=== PATIENT | female | born 1970 | race Caucasian/White ===

== ENCOUNTER 2023-10-25 10:26 | Emergency (ER) | payer OTHER ==
[2023-10-25 10:45] VITALS: PULSE 87; RESP 18; TEMP 98.5
--- NOTE | 2023-10-25 11:10 | ED ---
ENT HPI - General Chief complaint: Dental/Oral Stated complaint: jaw pain Time Seen by Provider: 10/25/23 10:40 Source: patient, RN notes reviewed Mode of arrival: ambulatory Limitations: no limitations - History of Present Illness Initial comments: This is a 53-year-old female presents the emergency department chief complaint of right-sided jaw pain. Patient states that she has a history of osteomyelitis and has had multiple procedures completed overdrawn in addition to being prescribed antibiotics. Patient [place] around [place] and does not have a established primary care provider that she seeks medical care through. Patient is presenting for a prescription for pain medication. Denies chest pain, shortness of breath, dizziness, lightheadedness, fevers, chills, nausea, vomiting. - Related Data Allergies Allergy/AdvReac Type Severity Reaction Status Date / Time NSAIDS (Non-Steroidal Allergy Unknown Verified 10/25/23 10:45 Anti-Inflamma ondansetron [From Zofran] Allergy Nausea Verified 10/25/23 10:45 meperidine [From Demerol] AdvReac Rash/Hives Verified 10/25/23 10:45 vancomycin AdvReac Unknown Verified 10/25/23 10:45 IV contrast Allergy Rash/Hives Uncoded 10/25/23 10:45 Review of Systems ROS Statement: Those systems with pertinent positive or pertinent negative responses have been documented in the HPI. ROS Other: All systems not noted in ROS Statement are negative. Past Medical History Past Medical History: Cancer, Hypertension Additional Past Medical History / Comment(s): MS, type one diabetes, ostemoyl itis, History of Any Multi-Drug Resistant Organisms: None Reported Past Surgical History: Appendectomy, Cholecystectomy, Hysterectomy Additional Past Surgical History / Comment(s): Jaw surgery x6 Past Psychological History: No Psychological Hx Reported Smoking Status: Never smoker Past Alcohol Use History: None Reported Past Drug Use History: None Reported General Exam Limitations: no limitations General appearance: alert, in no apparent distress Head exam: Present: atraumatic, normocephalic, normal inspection Eye exam: Present: normal appearance, PERRL, EOMI. Absent: scleral icterus, conjunctival injection, periorbital swelling ENT exam: Present: normal exam, mucous membranes moist Expanded Mouth exam: Present: normal external inspection, other (no teeth present). Absent: tongue normal, tongue elevation Neck exam: Present: normal inspection. Absent: tenderness, meningismus, lymphadenopathy Respiratory exam: Present: normal lung sounds bilaterally. Absent: respiratory distress, wheezes, rales, rhonchi, stridor Cardiovascular Exam: Present: regular rate, normal rhythm, normal heart sounds. Absent: systolic murmur, diastolic murmur, rubs, gallop, clicks GI/Abdominal exam: Present: soft, normal bowel sounds. Absent: distended, tenderness, guarding, rebound, rigid Extremities exam: Present: normal inspection, full ROM, normal capillary refill. Absent: tenderness, pedal edema, joint swelling, calf tenderness Back exam: Present: normal inspection Neurological exam: Present: alert, oriented X3, CN II-XII intact Psychiatric exam: Present: normal affect, normal mood Skin exam: Present: warm, dry, intact, normal color. Absent: rash Course Vital Signs 10/25/23 10/25/23 10/25/23 10:40 11:30 11:47 Temperature 98.5 F Pulse Rate 87 Respiratory 18 18 Rate Blood Pressure 211/113 208/111 O2 Sat by Pulse 99 Oximetry Medical Decision Making - Medical Decision Making Was pt. sent in by a medical professional or institution (, PA, [employer], urgent care, hospital, or penitentiary...) When possible be specific @ -No Did you speak to anyone other than the patient for history (EMS, parent, family, police, friend...)? What history was obtained from this source @ -No Did you review nursing and triage notes (agree or disagree)? Why? @ -I reviewed and agree with nursing and triage notes Were old charts reviewed (outside hosp., previous admission, EMS record, old EKG, old radiological studies, urgent care reports/EKG's, penitentiary records)? Report findings @ -No old charts were reviewed Differential Diagnosis (chest pain, altered mental status, abdominal pain women, abdominal pain men, vaginal bleeding, weakness, fever, dyspnea, syncope, headache, dizziness, GI bleed, back pain, seizure, CVA, palpatations, mental health, musculoskeletal)? @ -dental pain, jaw pain, gingivitis, gum pain, this list is not all inclusive. EKG interpreted by me (3pts min.). @ -none X-rays interpreted by me (1pt min.). @ -None done CT interpreted by me (1pt min.). @ -None done U/S interpreted by me (1pt. min.). @ -None done What testing was considered but not performed or refused? (CT, X-rays, U/S, labs)? Why? @ -None What meds were considered but not given or refused? Why? @ -None Did you discuss the management of the patient with other professionals (professionals i.e. Dr., PA, [employer], lab, RT, psych nurse, health care social worker, credit control officer, teacher, house officer, director of casework department)? Give summary @ -No Was smoking cessation discussed for >3mins.? @ -No Was critical care preformed (if so, how long)? @ -No Were there social determinants of health that impacted care today? How? (Homelessness, low income, unemployed, alcoholism, drug addiction, transportation, low edu. Level, literacy, decrease access to med. care, shelter, rehab)? @ -No Was there de-escalation of care discussed even if they declined (Discuss DNR or withdrawal of care, Hospice)? DNR status @ -No What co-morbidities impacted this encounter? (DM, HTN, Smoking, COPD, CAD, Cancer, CVA, ARF, Chemo, Hep., AIDS, mental health diagnosis, sleep apnea, morbid obesity)? @ -None Was patient admitted / discharged? Hospital course, mention meds given and route, prescriptions, significant lab abnormalities, going to OR and other pertinent info. @ -Left AGAINST MEDICAL ADVICE. 53-year-old female with dental pain. On patient's presentation she has noted to be severely hypertensive with a blood pressure of 211/113 with a heart rate of 87. Patient states that he does have a history of hypertension and is taking her metoprolol and lisinopril as prescribed this morning. She is denying symptoms of chest pain, chest pressure, palpitations, dizziness, and numbness. Patient is requesting pain medication for pain in her right jaw. On examination there are no signs of erythema, purulence or intraoral infection. She is provided with a dose of clonidine and pain medication. On reevaluation, patient states that she would like to leave AGAINST MEDICAL ADVICE. Discussed the risks of the patient which she has verbalized understanding. Undiagnosed new problem with uncertain prognosis? @ -No Drug Therapy requiring intensive monitoring for toxicity (Heparin, Nitro, Insulin, Cardizem)? @ -No Were any procedures done? @ -No Diagnosis/symptom? @ -jaw pain, oral pain, left AGAINST MEDICAL ADVICE Acute, or Chronic, or Acute on Chronic? @ -acute Uncomplicated (without systemic symptoms) or Complicated (systemic symptoms)? @ -uncomplicated Side effects of treatment? @ -No Exacerbation, Progression, or Severe Exacerbation? @ -No Poses a threat to life or bodily function? How? (Chest pain, [place], [place], pneumonia, PE, COPD, DKA, ARF, appy, cholecystitis, CVA, Diverticulitis, Homicidal, Suicidal, threat to staff... and all critical care pts) @ -yes, severe HTN can lead to multiorgan system dysfunction. Disposition Clinical Impression: Jaw pain, Left against medical advice Disposition: LEFT AGAINST MEDICAL ADVICE Condition: Undetermined Is patient prescribed a controlled substance at d/c from ED?: No Referrals: None,Stated [Primary Care Provider] - 1-2 days Time of Disposition: 11:45
[2023-10-25] MEDS: cloNIDine HCL 0.2 MG TAB PO STA (11:36)
[2023-10-25] MEDS: MORPHINE SULFATE 4 MG/ML SYRINGE IM STA (11:36)
[2023-10-25 11:41] VITALS: BP 208/111
== END 2023-10-25 11:47 | disposition left against medical advice (07) ==
LOC: EC 10:26
DX: R68.84 Jaw pain (principal); Z88.6 Allergy status to analgesic agent; Z88.1 Allergy status to other antibiotic agents; Z88.8 Allergy status to other drugs, medicaments and biological substances; Z53.29 Procedure and treatment not carried out because of patient's decision for other reasons
CPT/HCPCS: 99283; 96372; J2270